=== PATIENT | male | born 1940 | race Caucasian/White ===

== ENCOUNTER 2016-08-04 11:01 | Observation (INO) | payer MEDICARE, OTHER ==
[2016-08-04] VITALS (9 sets, daily range): BP systolic 98–147; BP diastolic 60–88; PULSE 58–81; TEMP 97.7–98
[~2016-08-04] VITALS: Ht 175.3 cm; Wt 123.6 kg
[~2016-08-04 11:01] MED LIST: ALDACTONE 25MG25 M1 PO; ASPIRIN 81M81 MG/TA2 PO; CAPOTEN 25MG25 MG PO; CEPHALEXIN250 M1 PO; COLACE 100100 MG/CAP PO; CORDARONE200 MG/TAB PO; CRESTOR5 MG PO; DEMADEX 20MG20 M1 PO; DUO-KAPS1 CAP PO; ELIQUIS 2.5 PO; ELIQUIS 5MG PO; LOPRESSOR 225 MG/TAB PO; NEURONTIN600 MG/TAB PO; NORCO 325 MG-7.1 TAB PO; PERI-COLACE 501 TAB PO; PRINIVIL5 MG PO; VITAMIN B COMPL1 T16 PO; VITAMIN D31000 IU PO; VITAMIN E 400 U4001 PO; VITAMINC500CH PO; XANAX 0.5MG0.5 MG PO; [UNRECOGNIZED DRUG - CODE] PO; [UNRECOGNIZED DRUG - OTHER] OP
[2016-08-04] MEDS ORDERED: COLACE 100100 MG/CAP PO (13:25)
[2016-08-04] MEDS ORDERED: THEO-24 30300 MG/CAP PO (13:29)
[2016-08-04] MEDS ORDERED: TAMBOCOR150 MG PO (13:29)
[2016-08-04] MEDS ORDERED: NEURONTIN300 MG/CAP PO ×2 (13:30→13:31)
[2016-08-04] MEDS ORDERED: EXCEDRIN TENSIO1 TAB PO (13:31)
[2016-08-04] MEDS ORDERED: NATURAL E400 IU PO (13:32)
[2016-08-05 01:26] VITALS: BP 128/68; PULSE 80; TEMP 98.5
[2016-08-05 05:21] VITALS: BP 113/59; PULSE 75; TEMP 97.9
[2016-08-05 07:43] LABS: HEMATOCRIT 39.7 % (42.0-52.0); HEMOGLOBIN 13.1 g/dl (13.5-18.0); MEAN CELL VOLUME 105 fl (80.0-100.0); MEAN CORPUSCULAR HEMOGLOBIN 35 pg (27.0-31.0); MEAN CORPUSCULAR HGB CONC 33 g/dl (33.0-37.0); MEAN PLATELET VOLUME 10.9 fl (7.4-10.4); PLATELET COUNT 158 K/mm3 (130-400); RED BLOOD COUNT 3.78 M/mm3 (4.20-5.60); REDCELL DISTRIBUTION WIDTH-CV 12.5 % (11.5-14.5); WHITE BLOOD COUNT 6.7 K/mm3 (4.8-10.8)
[2016-08-05 09:17] VITALS: BP 127/81; PULSE 80; TEMP 97.5
[2016-08-05 13:47] VITALS: BP 161/81; PULSE 75; TEMP 98.5
[2016-08-05 18:15] VITALS: BP 134/67; PULSE 76; TEMP 99.6
[2016-08-05 21:43] VITALS: BP 108/47; PULSE 87; TEMP 99.7
[2016-08-06 02:51] VITALS: BP 125/62; PULSE 75; TEMP 98.1
[2016-08-06 04:41] VITALS: BP 116/62; PULSE 79; TEMP 98.5
[2016-08-06 09:34] VITALS: BP 126/73; PULSE 83; TEMP 97.9
[2016-08-06 13:15] VITALS: BP 128/64; PULSE 82; TEMP 98.2
[2016-08-06] MEDS ORDERED: NORCO 325 MG-51 TAB PO (13:53)
[2016-08-06] MEDS ORDERED: COLACE 100100 MG/CAP PO (13:54)
[2016-08-06] MEDS ORDERED: PYRIDIUM 100MG100 MG PO (13:58)
[2016-08-06] MEDS ORDERED: QUALITY CHOI500 U/GM TP (14:00)
== END 2016-08-06 16:10 | disposition home or self-care (01) ==
LOC: SDCO 11:01 → SURG 15:25 → SDCO 08-05 08:45 → SURG 08-06 16:10
PROVIDERS: Urology
DX: N40.1 Benign prostatic hyperplasia with lower urinary tract symptoms (principal); R35.1 Nocturia; N43.3 Hydrocele, unspecified; I10 Essential (primary) hypertension; I48.91 Unspecified atrial fibrillation; Z79.82 Long term (current) use of aspirin; Z79.899 Other long term (current) drug therapy; Z87.891 Personal history of nicotine dependence
CPT/HCPCS: OP; G0378; J0690; J2250; J2370; J2405; J2704; J3010; J7120